=== PATIENT | male | born 1940 | race Caucasian/White ===

== ENCOUNTER 2022-02-16 08:42 | Outpatient (CLI) | payer MEDICARE, BC | END 2022-02-16 08:43 | disposition home or self-care (01) | LOC: CSHWCC 08:42 | PROVIDERS: ATTEND Preventive Medicine Undersea and Hyperbaric Medicine | DX: S81.802D Unspecified open wound, left lower leg, subsequent encounter (principal); R60.0 Localized edema | CPT/HCPCS: 29581; 97139; G0463; 99203 ==

== ENCOUNTER 2022-02-19 08:04 | Outpatient (CLI) | payer MEDICARE, BC | END 2022-02-19 08:05 | disposition home or self-care (01) | LOC: CSHWCC 08:04 | PROVIDERS: ATTEND Nurse Practitioner Family | DX: S81.802D Unspecified open wound, left lower leg, subsequent encounter (principal); R60.0 Localized edema ==

== ENCOUNTER 2022-02-23 10:58 | Outpatient (CLI) | payer MEDICARE, BC | END 2022-02-23 10:59 | disposition home or self-care (01) | LOC: CSHWCC 10:58 | PROVIDERS: ATTEND Preventive Medicine Undersea and Hyperbaric Medicine | DX: I87.312 Chronic venous hypertension (idiopathic) with ulcer of left lower extremity (principal); L97.821 Non-pressure chronic ulcer of other part of left lower leg limited to breakdown of skin; R60.0 Localized edema | CPT/HCPCS: 29581 ==

== ENCOUNTER 2022-02-26 09:16 | Outpatient (CLI) | payer MEDICARE, BC | END 2022-02-26 09:17 | disposition home or self-care (01) | LOC: CSHWCC 09:16 | PROVIDERS: ATTEND Preventive Medicine Undersea and Hyperbaric Medicine | DX: R60.0 Localized edema (principal) | CPT/HCPCS: 99213; G0463 ==

== ENCOUNTER 2022-03-11 11:07 | Outpatient (CLI) | payer MEDICARE, BC | END 2022-03-11 11:08 | disposition home or self-care (01) | LOC: CSHWCC 11:07 | PROVIDERS: ATTEND Preventive Medicine Undersea and Hyperbaric Medicine | DX: I87.312 Chronic venous hypertension (idiopathic) with ulcer of left lower extremity (principal); L97.821 Non-pressure chronic ulcer of other part of left lower leg limited to breakdown of skin; R60.0 Localized edema ==